=== PATIENT | male | born 1935 | race Hispanic/Latino ===

== ENCOUNTER 2021-04-09 09:47 | Outpatient (CLI) | payer OTHER ==
[2021-04-10 11:01] LABS: SARS-CoV-2 PCR by NAA Not Detected (NotDetected)
== END 2021-04-09 09:48 | disposition home or self-care (01) ==
LOC: CSHLAB 09:47
PROVIDERS: ATTEND Internal Medicine Gastroenterology
DX: Z20.822 Contact with and (suspected) exposure to COVID-19 (principal)
CPT/HCPCS: U0003; U0005

== ENCOUNTER 2021-04-12 06:02 | Day surgery (SDC) | payer OTHER ==
[2021-04-10 14:53] VITALS: BMI 26.4
[2021-04-12] MEDS ORDERED: Lidocaine 1% MPF 2 ML VIAL ONE (06:25)
[2021-04-12] MEDS ORDERED: PROPOFOL 20 ML ONE ×2 (07:09→07:59)
[2021-04-12] MEDS ORDERED: Fentanyl 100 MCG/2 ML VIAL ONE (07:09)
[2021-04-12] MEDS ORDERED: Lidocaine 1% PF 5 ML VIAL ONE (07:12)
[2021-04-12] MEDS ORDERED: Lidocaine Viscous Sol 2% 15 ml UD Cup ONE (07:44)
== END 2021-04-12 08:42 | disposition home or self-care (01) ==
LOC: CSHSDC 06:02
PROVIDERS: ATTEND Internal Medicine Gastroenterology
PROC: 0DB58ZZ Excision of Esophagus, Via Natural or Artificial Opening Endoscopic (ICD-10-PCS; principal; 2021-04-12)
PROC: 0DC58ZZ Extirpation of Matter from Esophagus, Via Natural or Artificial Opening Endoscopic (ICD-10-PCS; principal; 2021-04-12)
DX: K22.70 Barrett's esophagus without dysplasia (principal); K21.9 Gastro-esophageal reflux disease without esophagitis; K44.9 Diaphragmatic hernia without obstruction or gangrene; K25.9 Gastric ulcer, unspecified as acute or chronic, without hemorrhage or perforation; I25.10 Atherosclerotic heart disease of native coronary artery without angina pectoris; Z95.1 Presence of aortocoronary bypass graft; Z95.5 Presence of coronary angioplasty implant and graft; I65.23 Occlusion and stenosis of bilateral carotid arteries; K59.00 Constipation, unspecified; I10 Essential (primary) hypertension; E11.9 Type 2 diabetes mellitus without complications; E78.5 Hyperlipidemia, unspecified
CPT/HCPCS: 88305; J2704; J3010